=== PATIENT | male | born 1965 | race Caucasian/White ===

== ENCOUNTER 2019-02-15 00:53 | Emergency (ER) | payer OTHER ==
[~2019-02-15] VITALS: Ht 170.2 cm; Wt 65.8 kg
[2019-02-15] MEDS ORDERED: DIPHTH,PERTUSS(ACELL),TET TOX 0.5 ML DISP.SYRIN. VAX IM ONE (01:45)
[2019-02-15] MEDS ORDERED: LIDOCAINE 1%/EPI 1:100,000 20 ML VIAL. INJ ONE (01:45)
[2019-02-15 02:08] VITALS: BP 143/75
[2019-02-15] MEDS ORDERED: oxyCODONE/APAP 10/325 1 TAB TABLET PO ONE (02:15)
--- NOTE | 2019-02-15 02:18 | RAD ---
PQRS Compliance statement: One or more of the following individualized dose reduction techniques were utilized for this examination: 1. Automated exposure control. 2. Adjustment of the mA and/or kV according to patient size. 3. Use of iterative reconstruction technique. Indication:Trauma TECHNIQUE: CT head without IV contrast COMPARISON: None FINDINGS: No pathologic extra-axial or intra-axial fluid collection. The basal cisterns and ventricles are within normal limits. No acute intracranial bleed. No large scalp hematoma. No acute calvarial fractures. The mastoid air cells are clear. IMPRESSION: No acute intracranial bleed or calvarial fracture. Indication:Trauma. TECHNIQUE: CT of the maxillofacial bones without IV contrast multiplanar reformats. COMPARISON: None FINDINGS: Nasal septum is midline. Bilateral zygoma are within normal limits. Mildly displaced Fractures of the right zygomatic arch seen. Left zygomatic arch within normal limits. Bilateral external auditory canals are within normal limits. Mandible and temporomandibular joints are within normal limits. Visualized upper cervical spine within normal limits. The lenses, globes, extraocular muscles and intraorbital fat are within normal limits. Soft tissue swelling is seen overlying the right zygoma and zygomatic arch. The paranasal sinuses and mastoid air cells are clear. IMPRESSION: Mildly displaced right zygomatic arch fractures with overlying soft tissue swelling. Electronically signed by: Kaz Pinedo DO (02/15/2019 2:15 AM) [id number]
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
[2019-02-15] MEDS ORDERED: TRAM50TA PO (03:01)
== END 2019-02-15 03:15 | disposition home or self-care (01) ==
LOC: ER 00:53
DX: S02.40EA Zygomatic fracture, right side, initial encounter for closed fracture (principal); S06.0X0A Concussion without loss of consciousness, initial encounter; S80.12XA Contusion of left lower leg, initial encounter; S50.11XA Contusion of right forearm, initial encounter; M25.539 Pain in unspecified wrist; S06.0X9A Concussion with loss of consciousness of unspecified duration, initial encounter; W50.0XXA Accidental hit or strike by another person, initial encounter; Y93.89 Activity, other specified; Y92.89 Other specified places as the place of occurrence of the external cause; Y99.8 Other external cause status
CPT/HCPCS: 12011; 70450; 70486; 90471; 90715; 99284; J3490